=== PATIENT | female | born 1935 | race Caucasian/White ===

== ENCOUNTER 2016-11-23 21:26 | Emergency (ER) | payer MEDICARE ==
[2016-11-23] MEDS ORDERED: NITROGLYCERIN 0.4 MG 25 EA TAB SL ONE (21:38)
[2016-11-23] MEDS ORDERED: ASPIRIN TABLET 325 MG TAB ONE (21:38)
[2016-11-23] MEDS ORDERED: ONDANSETRON INJ 4 MG/2 ML VIAL ONE (21:38)
--- NOTE | 2016-11-23 22:53 | RAD ---
EXAM DESCRIPTION: Chest,2 Views CLINICAL HISTORY: 81 years, Female, acute chest pain with eating COMPARISON: Chest x-ray dated 05/27/2016. FINDINGS: PA and lateral chest radiographs were performed. The lungs are well expanded and clear. Incidental azygos lobe. The costophrenic sulci are sharp. The aortic arch is calcified. The cardiac silhouette, hilar regions, trachea, soft tissues and bony structures are unremarkable. In the interval since the prior study, there has been no significant change. IMPRESSION: No acute cardiopulmonary disease. Electronically signed by: Sarahy Veras MD 11/23/2016 10:52 PM CDT
[2016-11-23] MEDS ORDERED: LIDOCAINE VIS-MYLANTA 30 ML UD PO ONE (23:32)
--- NOTE | 2016-11-24 00:42 | CT ---
EXAM: CT chest without contrast. INDICATION: Chest pain. TECHNIQUE: Contiguous axial CT images of the chest. Intravenous contrast: Without. DLP 424 mGy-cm. COMPARISON: None. FINDINGS: Upper abdomen: Partially imaged. Thoracic aorta: Atherosclerotic calcifications Heart: Atherosclerotic calcifications of the coronary arteries Mediastinum: No pathologic sized middle mediastinal lymphadenopathy. Tracheobronchial tree: Unremarkable. Lungs: Lobar consolidation: Negative. Pleural effusion: Negative. Pneumothorax: Negative. Other: An azygos fissure is noted. Bones: Unremarkable. IMPRESSION: 1. No CT evidence of acute process in the chest. Electronically signed by: Arnoldo Zimmer MD 11/24/2016 12:42 AM CDT
[2016-11-24] MEDS ORDERED: GLUCAGON INJ 1 MG VIAL IV ONE (00:44)
[2016-11-24 02:20] VITALS: TEMP 97.8; O2SAT 93
--- NOTE | 2016-11-24 02:42 | ED.PDOC ---
History of Present Illness - General Chief Complaint: Chest Pain/IL Stated Complaint: chest pain and nausea Time Seen by Provider: 11/23/16 21:28 Source: patient Exam Limitations: no limitations - History of Present Illness Initial Comments: the patient is a 81-year-old female with a history of significant dementia presenting secondary to the acute onset chest pain with associated vomiting during supper tonight. She has had several episodes over the last year of chest pain with associated vomiting. She has not had any swallow studies performed or any upper GI evaluation done. She does have a history of gastroesophageal reflux disease not currently on treatment. The patient is throwing up saliva primarily on her arrival here. Chest pain does improve with glucagon use however does come back once the medication wears off or a trial of water is given. No fevers. No prodromal symptoms. Chest pain is not present when she has not vomiting. She is not short of breath. No syncope or near syncope. Timing/Duration: 1/2 hour Severity: severe Improving Factors: nothing Worsening Factors: eating Associated Symptoms: nausea/vomiting Allergies/Adverse Reactions: Allergies NO KNOWN ALLERGY Allergy (Verified 11/23/16 22:06) Home Medications: Ambulatory Orders Atorvastatin Calcium [Lipitor] 40 mg PO BEDTIME 05/10/16 Donepezil Hydrochloride [Donepezil HCl] 10 mg PO BEDTIME 05/10/16 Memantine HCl 10 mg PO BID 05/10/16 Potassium Chloride Tab [K-Dur] 20 meq PO BEDTIME 05/10/16 Ramipril 2.5 mg PO BEDTIME 05/10/16 Venlafaxine HCl [Venlafaxine HCl ER] 37.5 mg PO BEDTIME 05/10/16 Cyanocobalamin Inj [Vitamin B-12 Inj] 1,000 mcg IM MONTHLY 05/27/16 Cetirizine HCl [Zyrtec Allergy] 10 mg PO DAILY 11/23/16 Cholecalciferol [Vitamin D3] 5,000 unit PO DAILY 11/23/16 Review of Systems - Review of Systems Constitutional: States: no symptoms reported EENTM: States: no symptoms reported Respiratory: States: no symptoms reported Cardiology: States: chest pain Gastrointestinal/Abdominal: States: see HPI Genitourinary: States: no symptoms reported Musculoskeletal: States: no symptoms reported Skin: States: no symptoms reported Neurological: States: see HPI Endocrine: States: no symptoms reported All other Systems: No Change from Baseline Past Medical History (General) - Patient Medical History Hx Seizures: No Hx Stroke: No Hx Dementia: Yes Hx Asthma: No Hx of COPD: Yes Hx Cardiac Disorders: Yes - [place] x1 Hx Congestive Heart Failure: No Hx Pacemaker: No Hx Hypertension: Yes Hx Thyroid Disease: No Hx Diabetes: Yes - diet controlled Hx Gastroesophageal Reflux: Yes Hx Renal Disease: No Hx Cancer: No Hx of HIV: No Hx Hepatitis C: No Hx MRSA: No Surgical History: no surgical history - Vaccination History Hx Tetanus, Diphtheria Vaccination: No - unk last dose Hx Influenza Vaccination: Yes - 2015 Hx Pneumococcal Vaccination: Yes - Social History Hx Tobacco Use: Yes Hx Chewing Tobacco Use: No Hx Alcohol Use: No Hx Substance Use: No Hx Substance Use Treatment: No Hx Depression: No Hx Physical Abuse: No Hx Emotional Abuse: No - Female History Patient : No Family Medical History - Family History Mother Living Status: Hx Family Congestive Heart Failure: Yes Physical Exam - Physical Exam General Appearance: Alert, Anxious Eye Exam: bilateral normal Ears, Nose, Throat: normal ENT inspection, normal pharynx Neck: non-tender, full range of motion, supple, normal inspection Respiratory: chest non-tender, lungs clear, normal breath sounds, no respiratory distress Cardiovascular/Chest: normal peripheral pulses, regular rate, rhythm, no edema Peripheral Pulses: radial,right: 2+, radial,left: 2+, dorsalis pedis,right: 2+, dorsalis pedis,left: 2+, posterior tibialis,right: 2+, posterior tibialis,left: 2+ Gastrointestinal/Abdominal: non tender, soft Rectal Exam: deferred Back Exam: normal inspection Extremity: normal range of motion, non-tender, normal inspection, no pedal edema , no calf tenderness, normal capillary refill Neurologic: alert, normal mood/affect Skin Exam: normal color Comments: Vital Signs - 24 hr 11/23/16 11/23/16 11/23/16 22:07 22:51 23:07 Temperature 96.7 F L 96.6 F L Pulse Rate 74 74 Pulse Rate [ 77 75 71 left] Respiratory 16 16 16 Rate Blood Pressure 153/75 155/71 133/88 [right] O2 Sat by Pulse 93 L 93 L 93 L Oximetry 11/24/16 11/24/16 11/24/16 00:00 01:00 01:33 Temperature Pulse Rate 74 80 80 Pulse Rate [ 72 80 89 left] Respiratory 16 16 16 Rate Blood Pressure 142/116 147/46 167/51 [right] O2 Sat by Pulse 93 L 91 L 91 L Oximetry 11/24/16 02:13 Temperature 97.8 F Pulse Rate 96 H Pulse Rate [ 96 H left] Respiratory 16 Rate Blood Pressure 132/29 [right] O2 Sat by Pulse 93 L Oximetry Progress - Progress Progress: 11/24/16 02:44 the patient is a 81-year-old female presenting with acute onset chest pain with associated vomiting due to what appears to be a distal esophagus obstruction. The patient has failed conservative measures to pass the obstruction. Viscous lidocaine failed. glucagon failed. ambulation failed. percussion failed. the patient has had 2 sets of cardiac enzymes which were essentially negative. The patient will be transferred for GI evaluation for distal esophagus obstruction and likely underlying stricture given her history. - Results/Orders Results/Orders: Laboratory Tests 11/23/16 11/24/16 21:50 00:45 WBC 8.2 RBC 4.33 Hgb 13.1 Hct 39.7 MCV 91.7 MCH 30.3 MCHC 33.0 RDW 13.2 Plt Count 256 MPV 9.6 Absolute Neuts (auto) 4.90 Absolute Lymphs (auto) 2.00 Absolute Monos (auto) 1.10 H Absolute Eos (auto) 0.10 Absolute Basos (auto) 0.10 Neutrophils % 59.6 Lymphocytes % 25.0 Monocytes % 12.9 H Eosinophils % 1.8 Basophils % 0.7 PT 10.5 INR 0.930 PTT (SP) 34.3 Sodium 140 Potassium 4.1 Chloride 105 Carbon Dioxide 27 Anion Gap 12.1 BUN 31 H Creatinine 1.85 H BUN/Creatinine Ratio 16.8 Random Glucose 135 H Serum Osmolality 288.0 Calcium 9.6 Total Bilirubin 0.4 AST 17 ALT 13 Alkaline Phosphatase 85 Creatine Kinase 120 114 CK-MB (CK-2) 4.5 H 4.2 CK-MB (CK-2) % Not Reportable Not Reportable Troponin I < 0.02 < 0.02 B-Natriuretic Peptide 79.5 Serum Total Protein 7.9 Albumin 4.3 Globulin 3.6 H Albumin/Globulin Ratio 1.2 Amylase [address] scan of the chest shows that the oral contrast is not passing the distal esophagus. No other acute abnormality seen. EKG shows normal sinus rhythm with frequent PACs. She also does have intermittent PVCs. There is a right axis deviation. No acute ST segment changes worrisome for ischemia. EKG is consistent with previous EKGs on this patient Departure - Departure Clinical Impression: Esophagodynia Disposition: Transfer to Hospital Home Medications: Ambulatory Orders Atorvastatin Calcium [Lipitor] 40 mg PO BEDTIME 05/10/16 Donepezil Hydrochloride [Donepezil HCl] 10 mg PO BEDTIME 05/10/16 Memantine HCl 10 mg PO BID 05/10/16 Potassium Chloride Tab [K-Dur] 20 meq PO BEDTIME 05/10/16 Ramipril 2.5 mg PO BEDTIME 05/10/16 Venlafaxine HCl [Venlafaxine HCl ER] 37.5 mg PO BEDTIME 05/10/16 Cyanocobalamin Inj [Vitamin B-12 Inj] 1,000 mcg IM MONTHLY 05/27/16 Cetirizine HCl [Zyrtec Allergy] 10 mg PO DAILY 11/23/16 Cholecalciferol [Vitamin D3] 5,000 unit PO DAILY 11/23/16 Transfer to Outside Facility - Transfer Information Accepting Provider:: frances castano Accepting Facility: [facility] Reason for Transfer: required specialist not available
[2016-11-24 02:57] VITALS: BP 153/77
[2016-11-24] MEDS ORDERED: ONDANSETRON ODT 8 MG TAB SL SCH (03:00)
== END 2016-11-24 03:10 | disposition short-term general hospital (02) ==
LOC: ER 21:26
DX: R07.89 Other chest pain (principal); Z87.891 Personal history of nicotine dependence; J44.9 Chronic obstructive pulmonary disease, unspecified; I25.2 Old myocardial infarction; I10 Essential (primary) hypertension; E11.9 Type 2 diabetes mellitus without complications; K21.9 Gastro-esophageal reflux disease without esophagitis; Z79.899 Other long term (current) drug therapy
CPT/HCPCS: 36415; 71020; 71250; 80053; 82150; 82550; 82553; 83690; 83880; 84484; 85025; 85610; 85730; 93005; J1610